=== PATIENT | female | born 1980 | race Caucasian/White ===

== ENCOUNTER 2022-12-02 09:31 | Day surgery (SDC) | payer BC ==
[~2022-12-02 09:31] MED LIST: Sodium Chloride 0.9% 10 ML Syringe FLUSH PRN
[2022-12-02] MEDS ORDERED: Glycopyrrolate 0.2 MG/ML 5 ML MDV IV ONE (09:32)
[2022-12-02] MEDS ORDERED: fentaNYL 100 MCG/2 ML SDV IV ONE (09:32)
[2022-12-02] MEDS ORDERED: Lactated Ringers 1,000 ML IV ONE (09:32)
[2022-12-02] MEDS ORDERED: Propofol 200 MG/20 ML SDV IV ONE (09:32)
[2022-12-02] MEDS ORDERED: Midazolam 1 MG/ML 2 ML SDV IV ONE (09:32)
[2022-12-02] MEDS: Lactated Ringers 1,000 ML IV SCH (10:05)
== END 2022-12-02 13:05 | disposition home or self-care (01) ==
LOC: FB.SDS 09:31
PROVIDERS: ATTEND Surgery
DX: K62.1 Rectal polyp (principal); K63.5 Polyp of colon; K63.89 Other specified diseases of intestine; G47.33 Obstructive sleep apnea (adult) (pediatric); D50.0 Iron deficiency anemia secondary to blood loss (chronic); Z79.899 Other long term (current) drug therapy; Z98.890 Other specified postprocedural states; Z90.49 Acquired absence of other specified parts of digestive tract; Z87.891 Personal history of nicotine dependence; Z88.8 Allergy status to other drugs, medicaments and biological substances
CPT/HCPCS: 00812-QZ; 88305; J2250; J2704; J3010; J3490; J7120

== ENCOUNTER 2023-02-23 06:30 | Day surgery (SDC) | payer BC ==
[~2023-02-23 06:30] MED LIST changes: +Lactated Ringers 1,000 ML IV SCH; +ceFAZolin 1 GM Vial IVPUSH ONE; +ceFAZolin 1 GM in Sodium Chloride 0.9% 50 ML IV ONE
[2023-02-23] MEDS ORDERED: Bupivacaine 0.5% 50 ML MDV ONE (07:50)
[2023-02-23] MEDS ORDERED: Lidocaine 1% with EPINEPHrine 1:100,000 20 ML MDV ONE (07:50)
== END 2023-02-23 08:45 | disposition home or self-care (01) ==
LOC: FB.SDS 06:30
PROVIDERS: ATTEND Surgery
DX: R22.32 Localized swelling, mass and lump, left upper limb (principal); D50.0 Iron deficiency anemia secondary to blood loss (chronic); G47.33 Obstructive sleep apnea (adult) (pediatric); F17.210 Nicotine dependence, cigarettes, uncomplicated; Z79.899 Other long term (current) drug therapy; Z88.6 Allergy status to analgesic agent; Z88.8 Allergy status to other drugs, medicaments and biological substances
CPT/HCPCS: 21555; 88305; J3490